=== PATIENT | female | born 1980 | race Caucasian/White ===

== ENCOUNTER 2019-10-17 20:58 | Emergency (ER) | payer OTHER ==
--- NOTE | 2019-10-17 21:06 | PDOC ---
History of Present Illness - General Stated Complaint: ALLERGIC REACTION Time Seen by Provider: 10/17/19 21:06 Past History - Past Medical History Allergies/Adverse Reactions: Allergies Allergy/AdvReac Type Severity Reaction Status Date / Time tree nut Allergy Verified 10/17/19 21:32 Home Medications: Ambulatory Orders Diphenhydramine HCl [Benadryl -] 25 mg PO Q8H 3 Days #21 capsule 10/17/19 Naproxen 500 mg PO PRN PRN 10/17/19 ED Treatment Course - LABORATORY CBC & Chemistry Diagram: 10/17/19 22:04 10/17/19 22:04 Medical Decision Making - Medical Decision Making 10/17/19 21:36 39yo F hx constipation, UVALDO, and migraines presents from home c/o acute on chronic abdominal pain x1 day and allergic reaction to Tilex last PM. Yesterday PM pt began to feel abdominal pain, "pulling down" from vagina and rectum, acute onset, similar to pain 2/2 chronic constipation. Constipation pain normally relieved by sitting in warm bath, so pt did the same; however, pt had used Tilex in tub earlier and forgot to rinse it, so was sitting in water with Tilex for 20min before realised. Abdominal pain worsened and pt developed pruritic hives diffusely over body, hot feeling, SOB, and nausea so pt went to [facility] ED and was given prednisone and IVF with resolution of sx. Per pt, pt was not given Benadryl and was not discharged with any meds. Pt had another bath today (after having cleaned it extensively) due to abdominal pain returning ( though improved). At 8pm, again acute onset SOB, pruritic burning hives, dry mouth, lightheadedness, nausea, and suprapubic abdominal pain pulling from the vagina and anus so pt came here. No hx similar reactions. Only known allergy to tree nuts. Of note, pt ate [place] food both days but states has been eating from same restaurant for years without issues. Denies other new foods or detergents or soaps/lotions. LBM today. LMP June (states normally infrequent). Denies vaginal discharge, vaginal bleeding, vaginal irritation, vaginal rash, blood in stool, diarrhea, fever, chills, chest pain PCP - [facility] ROS: Constitutional: Positive for hot feeling. Negative for chills, fever, fatigue, diaphoresis. HENT: Positive for dry mouth. Negative for sore throat, rhinorrhea, congestion. Eyes: Negative for visual disturbance. Respiratory: Positive for shortness of breath. Negative for cough, and wheezing. Cardiovascular: Negative for chest pain, palpitations, and leg swelling. Gastrointestinal: Positive for abdominal pain, nausea, chronic constipation. Negative for blood in stool, diarrhea, and vomiting. Genitourinary: Negative for dysuria, flank pain, and hematuria. Musculoskeletal: Negative for myalgias, back pain, and neck pain. Skin: Positive for diffuse pruritic hives. Neurological: Positive for light-headedness. Negative for vertigo, syncope, weakness, numbness and headaches. Psychiatric/Behavioral: Negative for behavioral problems and confusion. PE: Gen: Alert, NAD, uncomfortable-appearing, diffuse hives HEENT: PERRL, EOMI, MMM, NCAT. No conjunctival pallor. Sclera are non-icteric. Oropharynx is clear. CV: Regular rate and rhythm. No murmurs, rubs, or gallops. PULM: No resp distress. CTAB, no wheezes, rales, or rhonchi. ABD: soft, NT/ND, no rebound tenderness or guarding, no CVA tenderness. PELVIC: External genitalia unremarkable. No blood seen with speculum exam. + white thick discharge in vault, no odor. Cervix visualized and is unremarkable ( closed in appearance without any protruding material). Bimanual exam with minimal cervical motion tenderness, without adnexal tenderness or any masses appreciated. No perineal rash. RECTAL: External exam unremarkable. BACK: No TTP of c/t/l-spine. No step-offs or deformities. MSK: No bony deformities. 2+ pulses in all extremities. NEURO: AAOx3. PERRL. No gross CN deficits. Strength and sensation grossly intact throughout. EXTREMITIES: No cyanosis. No clubbing. No edema. No calf tenderness. PSYCH: Normal mood and thought pattern. SKIN: Hives to BUEs, chest, abdomen, b/l thighs, and upper back. Warm and dry. Normal capillary refill. No jaundice. MDM: -CBC,CMP,HCG,UA/UC,G/C/T -Tylenol, Decadron, Benadryl, IVF -Diflucan for white thick discharge indicative of possible yeast infection (vs physiologic discharge) -call back G/C/trich -Dispo: pending w/u, observation, and reassessment 10/18/19 00:10 Labs reviewed. WBC 12.7. No e/o UTI. Neg preg. Pain improved s/p tylenol. Hives and other sx resolved s/p meds. Pt feels better. Will d/c home w/[employer] and PCP f/u. Return precautions given. Discharge - Discharge Information Problems reviewed: Yes Clinical Impression/Diagnosis: Allergic reaction, Rash, Suprapubic abdominal pain Condition: Improved Disposition: HOME - Admission No - Additional Discharge Information Prescriptions: Diphenhydramine HCl [Benadryl -] 25 mg PO Q8H 3 Days #21 capsule - Follow up/Referral Referrals: ON STAFF,NOT [Primary Care Provider] - Maximino Bee MD [Staff Physician] - Kita Peralta [Non Staff, Medical] - Urban Zamudio [Staff Physician] - - Patient Discharge Instructions Patient Printed Discharge Instructions: DI for General Allergic Reactions Additional Instructions: You have been seen in the Emergency Department for your rash and abdominal pain. It is most likely that both the rash and abdominal pain are due to an allergic reaction. We have given you a steroid and benadryl. We have sent additional Benadryl to your pharmacy - take as directed. You need follow-up with an [employer] to determine the cause of your allergy - it could be food or a substance your skin came in contact with. Your pelvic exam also showed a white discharge which could be due to a yeast infection - we have given you the medication to treat yeast infections here. Your labs showed that you do not have a UTI (Urinary Tract Infection) and you are not . We have sent additional tests for Gonorrhea and Chlamydia to the lab and we will have the results in a few days. You will receive a call back with the results in a couple days; if you don't hear by 10/21/19, call here for the results. Follow up with your primary care doctor within 1 week. Return to the Emergency Department immediately if you experience difficulty breathing, difficulty swallowing, continued rash after 3 days or worsening rash , vomiting, fever, severe abdominal pain, or any other new or worsening symptom. - Post Discharge Activity Work/Back to School Note: Back to Work
[2019-10-17] MEDS ORDERED: POLYETHYLENE GLYCOL 3350 119 GM BTL PO ONE (21:25)
[2019-10-17] MEDS ORDERED: SODIUM CHLORIDE 0.9% 500 ML INFUS.BAG IV ONE (21:25)
[2019-10-17] MEDS ORDERED: DEXAMETHASONE SOD PHOSPHATE 10 MG/1 ML VIAL IVPUSH ONE (21:26)
[2019-10-17 21:31] VITALS: BMI 25.2
[2019-10-17] MEDS ORDERED: ACETAMINOPHEN 500 MG TABLET (FP) PO ONE (21:33)
[2019-10-17] MEDS ORDERED: ACETAMINOPHEN 325 MG TABLET (FP) ONE (21:40)
[2019-10-17] MEDS ORDERED: DEXAMETHASONE SOD PHOSPHATE 10 MG/1 ML VIAL ONE (21:40)
--- NOTE | 2019-10-17 21:41 | PDOC ---
Attending Attestation - Resident Resident Name: Maribell Villagran - ED Attending Attestation I have performed the following: I have examined & evaluated the patient, The case was reviewed & discussed with the resident, I agree w/resident's findings & plan - HPI HPI: 10/17/19 21:33 Pt comes with hives on both arms. She has food allergies, and ate at a [place] restaurant. States that she has eaten there for years and never got allergies. Pt had allergic reaction to tilex, after cleaning tub and then bathing in it. Yesterday she went to another ER and was treated with prednisone and sent home. - Physicial Exam PE: 10/17/19 21:41 Pt has allergic hives on her upper arms bilat and her chest and abd and legs. Afebrile VSS Abd soft NT ND she has some suprapubic pain, but no rash and no swelling and no redness Pt has no flank pain HEENT normal heart lungs normal 10/17/19 22:35 Pelvic exam normal + white discharge and minima CMT - Medical Decision Making 10/17/19 22:25 Pt has a WBC of 12+ She will be treated with benadryl and steroids and pain meds. 10/17/19 23:24 Chem is normal and pt is not 10/18/19 00:25 UA normal and patient is stable for discharge home
[2019-10-17] MEDS ORDERED: morphine CARPU-JECT 2 MG/1 ML DISP.SYRIN IVPUSH ONE (22:16)
[2019-10-17 22:17] LABS: BASO % 0.6 % (0-2.0); EOS % 0.1 % (0-4.5); HEMATOCRIT 36.4 % (32.4-45.2); MCHC 32.9 g/dl (32.0-36.0); MEAN CELL VOLUME 91.2 fl (80-96); MEAN PLT VOLUME 10.5 fl (7.5-11.1); MONO % 8.6 % (3.8-10.2); NEUT % 68.7 % (42.8-82.8); PLATELET COUNT 238 K/MM3 (134-434); RBC 3.99 M/mm3 (3.60-5.2); RDW 13.3 % (11.6-15.6); WHITE BLOOD COUNT 12.7 K/mm3 (4.0-10.0)
[2019-10-17] MEDS ORDERED: FLUCONAZOLE 150 MG TABLET PO ONE ×2 (22:34→22:38)
[2019-10-17 22:45] VITALS: BP 135/80; PULSE 90; TEMP 97.7
[2019-10-17 22:54] LABS: ALBUMIN 3.6 g/dl (3.4-5.0); BILIRUBIN,TOTAL 0.2 mg/dL (0.2-1); BLOOD UREA NITROGEN 10.3 mg/dL (7-18); CALCIUM 8.8 mg/dL (8.5-10.1); CREATININE 0.9 mg/dL (0.55-1.3); POTASSIUM 4.3 mmol/L (3.5-5.1); TOT PROT 6.4 g/dl (6.4-8.2)
[2019-10-17 23:44] LABS: URINE APPEARANCE CLEAR; URINE BILIRUBIN NEGATIVE (NEGATIVE); URINE COLOR YELLOW; URINE GLUCOSE (UA) NEGATIVE (NEGATIVE); URINE KETONE NEGATIVE (NEGATIVE); URINE LEUK ESTERASE NEGATIVE (NEGATIVE); URINE NITRITE NEGATIVE (NEGATIVE); URINE PROTEIN NEGATIVE (NEGATIVE)
== END 2019-10-18 00:25 | disposition home or self-care (01) ==
LOC: JER 20:58
PROC: 3E033NZ Introduction of Analgesics, Hypnotics, Sedatives into Peripheral Vein, Percutaneous Approach (ICD-10-PCS; principal; 2019-10-17)
PROC: 3E0333Z Introduction of Anti-inflammatory into Peripheral Vein, Percutaneous Approach (ICD-10-PCS; 2019-10-17)
PROC: 3E033GC Introduction of Other Therapeutic Substance into Peripheral Vein, Percutaneous Approach (ICD-10-PCS; 2019-10-17)
DX: L50.0 Allergic urticaria (principal); T78.40XA Allergy, unspecified, initial encounter; X58.XXXA Exposure to other specified factors, initial encounter; B37.3 Candidiasis of vulva and vagina; Z91.018 Allergy to other foods
CPT/HCPCS: 36415; 80053; 81003; 84702; 85025; 87491; 87591; 87661; 99284-25; J1100

== ENCOUNTER 2021-10-05 10:03 | Emergency (ER) | payer OTHER ==
[2021-10-05 10:24] VITALS: BP 114/80; PULSE 102; TEMP 98.6; BMI 25.8
[2021-10-05] MEDS ORDERED: diphenhydrAMINE HCL 25 MG CAPSULE (FP) PO ONE ×2 (11:38→11:41)
[2021-10-05] MEDS ORDERED: DEXAMETHASONE LIQUID 0.5 MG/5 ML PO ONE (11:38)
[2021-10-05] MEDS ORDERED: FAMOTIDINE 20 MG TABLET PO ONE (11:38)
[2021-10-05] MEDS ORDERED: DEXAMETHASONE SOD PHOSPHATE 10 MG/1 ML VIAL ONE (11:41)
[2021-10-05] MEDS ORDERED: FAMOTIDINE 20 MG TABLET ONE (11:41)
== END 2021-10-05 11:45 | disposition home or self-care (01) ==
LOC: JERFT 10:03
DX: T78.40XA Allergy, unspecified, initial encounter (principal)
CPT/HCPCS: 99283-25